=== PATIENT | male | born 1950 | race Two or more races ===

== ENCOUNTER 2020-09-04 11:00 | Day surgery (SDC) | payer MEDICARE, OTHER ==
--- NOTE | 2020-09-03 20:37 | Pre-Procedure Note/Attestation ---
Pre-Procedure Note/Attestation Complete Prior to Procedure Planned Procedure: right - Removal of cataract and placement of intraocular lens, right eye Procedure Narrative: Removal of cataract and placement of intraocular lens, right eye Indications for Procedure Pre-Operative Diagnosis: Cataract combined, right eye Attestation I attest that I discussed the nature of the procedure; its benefits; risks and complications; and alternatives (and the risks and benefits of such alternatives), prior to the procedure, with the patient (or the patient's legal hr representative). I attest that, if there was a reasonable possibility of needing a blood t ransfusion, the patient (or the patient's legal hr representative) was given the [facility] standardized written summary, pursuant to the Don Mallorie Blood Safety Act ([place] Health and Safety Code # 1645, as amended). I attest that I re-evaluated the patient just prior to the surgery and that there has been no change in the patient's H&P, except as documented below: Nick Snow MD Sep 03, 2020 20:37
[~2020-09-04] VITALS: Ht 154.9 cm; Wt 86.2 kg
[2020-09-04] MEDS ORDERED: Ciprofloxacin Opth Soln 5ml ONE (11:25)
[2020-09-04] MEDS ORDERED: Akten 3.5% 1ml Btl ONE (11:25)
[2020-09-04] MEDS ORDERED: Tobradex Opth Susp 2.5ml ONE (11:25)
[2020-09-04] MEDS ORDERED: Phenylephrine 10% Opth Soln 5ml ONE (11:25)
[2020-09-04] MEDS ORDERED: Tropicamide 1% Opth 15ml Soln ONE (11:25)
[2020-09-04] MEDS: Phenylephrine 10% Opth Soln 5ml RIGHT EYE SCH ×3 (11:31→11:45)
[2020-09-04] MEDS: Tobradex Opth Susp 2.5ml RIGHT EYE SCH ×3 (11:31→11:45)
[2020-09-04] MEDS: Tropicamide 1% Opth 15ml Soln RIGHT EYE SCH ×3 (11:31→11:44)
[2020-09-04] MEDS: Ciprofloxacin Opth Soln 5ml RIGHT EYE SCH ×3 (11:32→11:45)
[2020-09-04] MEDS: Akten 3.5% 1ml Btl RIGHT EYE SCH ×3 (11:32→11:45)
[2020-09-04 11:35] VITALS: BP 144/80
[2020-09-04] MEDS ORDERED: VITAMIN C500 M1 ORAL (11:53)
[2020-09-04] MEDS ORDERED: LOSARTAN POTASS25 MG ORAL (11:53)
[2020-09-04] MEDS ORDERED: VITAMIN E100 UNI2 ORAL (11:53)
[2020-09-04] MEDS ORDERED: ZINC30 MG ORAL (11:53)
[2020-09-04] MEDS ORDERED: AMLODIPINE BES2.5 MG ORAL (11:53)
[2020-09-04] MEDS ORDERED: METOPROLOL SUCC25 MG ORAL (11:53)
[2020-09-04] MEDS ORDERED: VITAMIN A8000 UNIT PO (11:53)
[2020-09-04] MEDS ORDERED: Lidocaine 1% MPF 10mg/ml 5ml ONE ×2 (12:23→13:57)
[2020-09-04] MEDS ORDERED: fentaNYL 100 mcg/2 mL IV ONE (12:24)
[2020-09-04] MEDS ORDERED: NS Irrig 1000ml ONE (12:30)
[2020-09-04] MEDS ORDERED: DiphenhydrAMINE 50mg/ml Inj IVP PRN (12:30)
[2020-09-04] MEDS ORDERED: Labetalol 5mg/ml 20ml vial IV PRN (12:30)
[2020-09-04] MEDS ORDERED: Sterile Water Irrig 1000ml IRRIG ONE (12:30)
[2020-09-04] MEDS ORDERED: LR 1000ml 1,000 ML IVLG SCH (12:30)
[2020-09-04] MEDS ORDERED: LR 1000ml ONE (12:30)
--- NOTE | 2020-09-04 12:30 | Anethesia Preoperative Eval ---
Anesthesia Pre-op PMH/ROS General Date of Evaluation: Sep 04, 2020 Anesthesiologist: ludin ASA Score: ASA 2 Mallampati Score Class I : Soft palate, uvula, fauces, pillars visible Class II: Soft palate, uvula, fauces visible Class III: Soft palate, base of uvula visible Class IV: Only hard plate visible Mallampati Classification: Class III Surgeon: Gwendolyn Diagnosis: right cataract Surgical Procedure: right catarac extraction with IOL Anesthesia History: none Family History: no anesthesia problems Allergies: Coded Allergies: PENICILLINS (Verified Allergy, Unknown, 09/04/20) Medications: see eMAR Patient NPO?: Yes NPO Date: Sep 04, 2020 NPO Time: 00:00 Past Medical History Cardiovascular: Reports: HTN; Denies: CAD, ND, valve dz, arrhythmia, other Pulmonary: Denies: asthma, COPD, NABILA, other Gastrointestinal/Genitourinary: Denies: GERD, CRI, ESRD, other Neurologic/Psychiatric: Denies: dementia, CVA, depression/anxiety, TIA, other Endocrine: Reports: DM; Denies: hypothyroidism, steroids, other HEENT: Denies: cataract (L), cataract (R), glaucoma, EWIIAAPAAYP (L), EWIIAAPAAYP (R), other Hematology/Immune: Denies: anemia, DVT, bleeding disorder, other Musculoskeletal/Integumentary: Denies: OA, RA, DJD, DDD, edema, other PSxH Narrative: denies Anesthesia Pre-op Phys. Exam Physician Exam Last Vital Signs Date Time Temp Pulse Resp B/P (MAP) Pulse Ox O2 Delivery O2 Flow Rate FiO2 09/04/20 11:35 98.2 80 18 144/80 98 Room Air Constitutional: NAD Cardiovascular: RRR Respiratory: CTA Airway Exam Mallampati Score: Class III MO: limited ROM: limited Anesthesia Pre-op A/P Labs Chemistry Test 09/04/20 11:42 POC Whole Blood Glucose 132 MG/DL (74-106) H Studies Pre-op Studies: EKG - sr Risk Assessment & Plan Assessment: ASA II Plan: MAC Status Change Before Surgery: No Pre-Antibiotics Drug: N/A Billie Novoa MD Sep 04, 2020 12:30
[2020-09-04 13:38] VITALS: BP 160/87
--- NOTE | 2020-09-04 13:38 | Discharge Instructions ---
Discharge Instructions Discharge Instructions Follow Up Orders Continue preoperative eye drops Wear shield at all times except to place eye drops Followup tomorrow in Dr Snow's office For Congestive Heart Failure Reminder Report to your physician any weight gain of 5 pounds or more in one week. Nick Snow MD Sep 04, 2020 13:38
--- NOTE | 2020-09-04 13:41 | Immediate Post-Op Evaluation ---
Immediate Post-Op Evalulation Immediate Post-Op Evalulation Procedure: right cataract extraction with IOL Date of Evaluation: Sep 04, 2020 Time of Evaluation: 13:43 IV Fluids: 200 Blood Products: 0 Estimated Blood Loss: 0 Urinary Output: 0 Blood Pressure Systolic: 160 Blood Pressure Diastolic: 87 Pulse Rate: 70 Respiratory Rate: 16 O2 Sat by Pulse Oximetry: 95 Temperature (Fahrenheit): 98.1 Pain Score (1-10): 0 Nausea: No Vomiting: No Complications 0 Patient Status: awake, reacts, patent, none Hydration Status: adequate Drug: N/A Billie Novoa MD Sep 04, 2020 13:41
--- NOTE | 2020-09-04 13:41 | Brief Operative Note ---
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
--- NOTE | 2020-09-04 13:41 | 48 Hour Post Anesthesia Eval ---
Post Anesthesia Evaluation Procedure: right cataract extraction with IOL Date of Evaluation: Sep 04, 2020 Airway: patent Nausea: No Vomiting: No Pain Intensity: 0 Hydration Status: adequate Cardiopulmonary Status: at baseline Mental Status/LOC: patient returned to baseline Post-Anesthesia Complications: 0 Follow-up care needed: ready to discharge Billie Novoa MD Sep 04, 2020 13:41
[2020-09-04 13:45] VITALS: BP 150/70
[2020-09-04 13:49] VITALS: BP 134/71
[2020-09-04 13:50] VITALS: BP 134/71
[2020-09-04] MEDS ORDERED: EPINEPHrine 1mg/1ml Amp ONE (13:56)
[2020-09-04] MEDS ORDERED: BSS 15ml BTL ONE (13:57)
[2020-09-04] MEDS ORDERED: Sodium Hyaluronate 10 mg/ml 0.85ml ONE (13:57)
[2020-09-04] MEDS ORDERED: BSS 500ml btl ONE (13:57)
[2020-09-04] MEDS ORDERED: Maxitrol Opth Oint 3.5gm ONE (13:57)
[2020-09-04] MEDS ORDERED: prednisoLONE acetate 1% Opth Susp 1ml ONE (13:57)
[2020-09-04] MEDS ORDERED: Povidone-Iodine 5% opth solution ONE (13:57)
[2020-09-04 14:00] VITALS: BP 131/78
--- NOTE | 2020-09-05 08:00 | Operative Note - Dictated ---
DATE OF OPERATION: 09/04/2020 SURGEON: Nick Snow MD. AGRONOMY RESEARCH MANAGER SURGEON: None. ANESTHESIOLOGIST: Dr. Novoa. ANESTHESIA: Local/standby/monitored anesthesia care. PREOPERATIVE DIAGNOSES: 1. Cataract, combined, right eye. 2. Miosis, right eye. POSTOPERATIVE DIAGNOSES: 1. Cataract, combined, right eye. 2. Floppy iris syndrome, right eye. PROCEDURE: 1. Phacoemulsification of cataract, right eye. 2. Placement of posterior chamber intraocular lens, right eye (model ZCB00, power 19.0). 3. Use of Malyugin ring, right eye. SPECIMENS: None. COMPLICATIONS: None. INDICATIONS FOR SURGERY: The patient has had the painless progressive decrease in visual acuity in the right eye secondary to cataract. The patient understands the risks of surgery including infection, bleeding, need for further surgery, loss of vision, no improvement in vision, loss of the eye, loss of life, glaucoma, retinal detachment, and understands these risks and elects to proceed with surgery. FINDINGS: The patient had a +3 nuclear sclerotic cataract as well as a +2 cortical cataract and +1 anterior subcapsular cataract. In addition, the pupil was miotic prior to the surgery necessitating the use of Malyugin ring and wound healing 7.0 mm was used for the procedure. OPERATIVE NOTE: After informed consent was obtained, the patient was brought to the operating room, placed in supine position. Cardiac and respiratory monitors were attached. A time-out was performed and all criteria were met and everyone in the room agreed. The right eye was then draped and prepped in sterile manner for ocular surgery. A 1% lidocaine preservative-free was injected at the 9 o'clock limbus. A conjunctiva peritomy from 08:30 to 09:30 was made and dissected posteriorly. Hemostasis was maintained with bipolar cautery. A 2.6 mm limbal incision was made centered approximately 9 o'clock and dissected anteriorly. A paracentesis was made at 12 o'clock and Shugarcaine was injected into the anterior chamber followed by Healon. The anterior chamber was then entered using a 2.6 mm keratome through the limbal incision. The was injected into the anterior chamber and hooked onto the pupillary margin at four points to expand the pupil. An anterior capsulorrhexis was then performed. Hydrodissection and hydrodelineation of the lens was then performed. The lens was then phacoemulsified using divide and conquer four-quadrant technique. Residual cortical material was then aspirated. Healon was injected into the anterior chamber capsular bag. The lens was taken from its package and multiple attempts were made to try and hold the lens, which was unable to be done and then a preloaded lens was used to inject the lens into the capsular bag and centered nicely with a Sinskey hook. The both haptics and the optic were in the capsular bag. The ring was then removed from the eye. Healon was then aspirated from the anterior chamber and capsular bag. The lens was then visually examined again and the optic and both haptics were in the capsular bag centered along the 9 o'clock to 3 o'clock meridian. One 10-0 nylon interrupted suture was placed through the limbal incision and the knot was rotated and buried. Care was taken during the entire procedure not to touch the endothelium. The wounds were checked and found to be watertight. The conjunctiva was then closed with forceps cautery. The lid speculum and drapes removed from the eye and drops of Pred Forte, TobraDex, and moxifloxacin were applied to the eye followed by Maxitrol ointment and then shield. The patient tolerated the procedure well and left the operating room awake, alert, in stable condition. Nick Snow M.D. DR: IKNG JOB#: [id number] CC:
== END 2020-09-04 14:30 | disposition home or self-care (01) ==
LOC: SUR 11:00
DX: H25.11 Age-related nuclear cataract, right eye (principal); H25.011 Cortical age-related cataract, right eye; H21.81 Floppy iris syndrome; H25.031 Anterior subcapsular polar age-related cataract, right eye; I10 Essential (primary) hypertension; E11.9 Type 2 diabetes mellitus without complications; Z88.0 Allergy status to penicillin
CPT/HCPCS: 66982; 82962; 94003; J0171; J1100; J1200; J3010; J7120; U0002; V2632; 94150